=== PATIENT | female | born 1990 | race Caucasian/White ===

== ENCOUNTER 2016-09-26 12:02 | Emergency (ER) | payer OTHER ==
[~2016-09-26] VITALS: Ht 162.6 cm; Wt 86.4 kg
[~2016-09-26 12:02] MED LIST: ALBU8.5H4 IH; GLYB1TAB3 PO; TUMS PO
[2016-09-26 12:04] VITALS: BP 127/77; PULSE 64; RESP 16; O2SAT 97
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
[2016-09-26] MEDS ORDERED: Dexamethasone 20 mg/2 mL Oral Solution PO ONE (15:00)
[2016-09-26] MEDS ORDERED: Ketorolac 30 mg/mL 2 mL Inj IM ONE (15:00)
[2016-09-26 15:54] VITALS: BP 114/80; PULSE 55
[2016-09-26 15:55] VITALS: BP 119/77; PULSE 63
== END 2016-09-26 16:05 | disposition home or self-care (01) ==
LOC: SED 12:02
DX: S00.83XA Contusion of other part of head, initial encounter (principal); Y04.0XXA Assault by unarmed brawl or fight, initial encounter; Y93.89 Activity, other specified; Y92.009 Unspecified place in unspecified non-institutional (private) residence as the place of occurrence of the external cause; Y99.8 Other external cause status; R11.10 Vomiting, unspecified; R22.0 Localized swelling, mass and lump, head; J45.909 Unspecified asthma, uncomplicated
CPT/HCPCS: 96372; 99283; J1885